=== PATIENT | male | born 1970 | race Caucasian/White ===

== ENCOUNTER → 2017-03-01 | Outpatient (CLI) | payer OTHER ==
[2017-03-01 09:12] LABS: ALBUMIN/GLOBULIN RATIO 1.1 (1.0-1.7); CALCIUM 9.3 mg/dL (8.5-10.1); CREATININE 1.2 mg/dL (0.7-1.3); GFR 65.8; POTASSIUM 4.7 mmol/L (3.5-5.1); TOTAL BILIRUBIN 0.7 mg/dL (0.2-1.0); TOTAL PROTEIN 7.7 g/dL (6.4-8.2)
== END | disposition home or self-care (01) ==
LOC: LAB 07:11
PROVIDERS: ATTEND Internal Medicine Cardiovascular Disease
DX: E78.00 Pure hypercholesterolemia, unspecified (principal)
CPT/HCPCS: 36415; 80053; 80061

== ENCOUNTER 2018-02-27 14:31 | Emergency (ER) | payer OTHER ==
[2018-02-27] MEDS ORDERED: HYDR-2758 PO (14:53)
[2018-02-27 15:41] LABS: BILIRUBIN,URINE NEG (NEG); CLARITY,URINE CLEAR; COLOR,URINE YELLOW
[2018-02-27 15:42] LABS: GLUCOSE,URINE NEG (NEG); NITRITE,URINE NEG (NEG); UROBILINOGEN,URINE 0.2 mg/dL (0.2 mg/dL)
--- NOTE | 2018-02-27 16:34 | PHYS DOC ---
Past History Past Medical History: Hypertension, Kidney Stones Past Surgical History: Cholecystectomy Alcohol Use: Occasionally Drug Use: None Adult General Chief Complaint Chief Complaint: FLANK PAIN HPI HPI 47-year-old male patient with history of hypertension and previous kidney stones complaining of sudden onset of lower back pain that woke him up at 2 AM as a sharp pain without radiation. Patient complains of nausea and urinary frequency and states the pain getting gradually getting worse and rated his pain about 9/10 at 1200. Patient states he took leftover hydrocodone with improvement of pain to 2-3. Patient denies vomiting diarrhea, constipation, fever and chills, chest pain and shortness of breath, focal neuro deficit. Patient states he had the same pain with his previous kidney stones and thinks he has another kidney stone. Review of Systems Review of Systems Constitutional: Denies fever or chills [] Eyes: Denies change in visual acuity, redness, or eye pain [] HENT: Denies nasal congestion or sore throat [] Respiratory: Denies cough or shortness of breath [] Cardiovascular: No additional information not addressed in HPI [] GI: Denies abdominal pain, nausea, vomiting, bloody stools or diarrhea [] : Denies dysuria or hematuria , reports flank pain and frequent Musculoskeletal: Denies back pain or joint pain [] Integument: Denies rash or skin lesions [] Neurologic: Denies headache, focal weakness or sensory changes [] Endocrine: Denies polyuria or polydipsia [] All other systems were reviewed and found to be within normal limits, except as documented in this note. Current Medications Current Medications Current Medications Medications (Trade) Dose Ordered Sig/[facility] Start Time Stop Time Status Last Admin Dose Admin Clonidine HCl (Catapres) 0.1 mg 1X ONCE 02/27/18 16:45 02/27/18 16:46 Allergies Allergies Allergies Coded Allergies Type Severity Reaction Last Updated Verified No Known Drug Allergies 02/27/18 No Physical Exam Physical Exam Constitutional: Well developed, well nourished, no acute distress, non-toxic appearance. [] HENT: Normocephalic, atraumatic, oropharynx moist. Eyes: PERRLA, EOMI, conjunctiva normal, no discharge. [] Neck: Normal range of motion, no tenderness, supple, no stridor. [] Cardiovascular:Heart rate regular rhythm, no murmur [] Lungs & Thorax: Bilateral breath sounds clear to auscultation [] Abdomen: Bowel sounds normal, soft, no tenderness, no masses, no pulsatile masses. [] Skin: Warm, dry, no erythema, no rash. [] Back: No tenderness, no CVA tenderness. [] Extremities: No tenderness, no cyanosis, no clubbing, ROM intact, no edema. [] Neurologic: Alert and oriented X 3, normal motor function, normal sensory function, no focal deficits noted. [] Psychologic: Affect normal, judgement normal, mood normal. [] Current Patient Data Vital Signs Vital Signs Date Time Temp Pulse Resp B/P (MAP) Pulse Ox O2 Delivery O2 Flow Rate FiO2 02/27/18 16:20 76 20 188/118 (141) 96 Room Air 02/27/18 14:32 97.8 Lab Results Laboratory Tests Test 02/27/18 15:15 Urine Collection Type Unknown Urine Color Yellow Urine Clarity Clear Urine pH 6.0 Urine Specific [place] 1.020 Urine Protein Trace (NEG-TRACE) Urine Glucose (UA) Neg mg/dL (NEG) Urine Ketones (Stick) Neg mg/dL (NEG) Urine Blood Large (NEG) Urine Nitrite Neg (NEG) Urine Bilirubin Neg (NEG) Urine Urobilinogen Dipstick 0.2 mg/dL (0.2 mg/dL) Urine Leukocyte Esterase Neg (NEG) EKG EKG [] Radiology/Procedures Radiology/Procedures [] IMAGING REPORT Signed PATIENT: THIAGO LUIS ACCOUNT: [id number] : 1970 LOCATION: ER AGE: 47 SEX: M EXAM STATUS: REG ER ORD. PHYSICIAN: KAYLAN FONTANEZ MD REASON: lower back pain since this morning, history of kidney stones PROCEDURE: CT ABDOMEN PELVIS WO CONTRAST PQRS Compliance Statement: One or more of the following individualized dose reduction techniques were utilized for this examination: 1. Automated exposure control 2. Adjustment of the mA and/or kV according to patient size 3. Use of iterative reconstruction technique CT ABDOMEN PELVIS WO CONTRAST Clinical Indication: FLANK PAIN, lower back pain since this morning. History of kidney stones. Comparison: None. Technique: Helical CT imaging of the abdomen and pelvis is performed without IV or oral contrast. Findings: Lung bases essentially clear. Cardiac size normal. Fatty infiltration of the liver. Cholecystectomy. The spleen, pancreas, adrenal glands, abdominal aorta caliber are normal. The right ureter is normal. No right hydronephrosis. Mild right perinephric stranding. There is moderate left perinephric stranding. There is a 4.7 cm left lower pole renal cyst. There is at least 2 punctate nonobstructing left renal calculi. There is mild left hydroureteronephrosis secondary to a 5 mm distal left ureteral calculus, image 125. The calculus is a couple of centimeters proximal to the ureterovesicular junction. There is mild left periureteral stranding. Stomach unremarkable. No dilated small bowel. There is no colon wall thickening. The appendix is normal. No abdominal adenopathy or free fluid. Urinary bladder is not well distended. Wall is borderline thickened. Prostate and seminal vesicles are normal. No pelvic free fluid. Bilateral L5 spondylolysis. There is negligible grade 1 anterolisthesis of L5 on S1 and negligible grade 1 retrolisthesis of L4 on L5. IMPRESSION: 1. Mild left obstructive uropathy secondary to a 5 mm distal left ureteral calculus. 2. Punctate nonobstructing left renal calculi. 3. Fatty infiltration of the liver. 4. Borderline wall thickening of the urinary bladder. Considerations include nonspecific cystitis, chronic bladder outlet obstruction, or pseudothickening due to lack of distention. Electronically signed by: Blue Rdz MD (02/27/2018 5:01 PM) [id number] DICTATED AND SIGNED BY: BLUE RDZ MD DATE: 02/27/18 1654 Course & Med Decision Making Course & Med Decision Making Pertinent Labs and Imaging studies reviewed. (See chart for details) Evaluation of patient in ER showed 47-year-old male patient with complaining of low back pain and urinary frequency. Patient had 5 mm left UVJ junction stone. Patient had blood pressure of more than 200/126 that did not get better with clonidine. Blood pressure did not get better with clonidine but patient take more clonidine. Fentanyl IV was given and labs was ordered. Patient instructed to strain his urine and follow up with urologist. labs pending. Patient care transferred to Dr. Beth at [phone] ED course: Patient was signed out to me by Dr. Fontanez who is concerned for the patient's elevated blood pressure of 180/120. I went to reevaluate the patient who states he is completely asymptomatic other than some pain from his kidney stone but denies any headache or vision or any chest pain or shortness of breath. Patient does not want any more blood pressure medication because he states that in the past they have overtreated his blood pressure and dropped it to low and he had symptoms from low blood pressure. I recommended the patient follow up as PCP for further blood pressure management and to take his blood pressure in the morning. I recommended he continue taking his blood pressure medication as previously prescribed. I discussed with the patient prescriptions to go home with for the kidney stone and he states he has 25 Lortab at home and does not need any more pain medication. I recommended prescribing him Zofran and Flomax to help with the symptoms from the kidney stone. I recommended if pain is still present after 3 days to return immediately to the emergency room for further evaluation otherwise follow-up with his family doctor next one to 2 days. Patient states he 's passed stones larger than this before. Patient is stable for discharge. MDM: After reviewing the chart, CC/HPI/PMH, physical exam, [lab results], [ radiological results], I believe the patient has a kidney stone and is stable for discharge. Patient has known hypertension and is asymptomatic from his elevated blood pressure therefore do not believe he is having a hypertensive emergency needing further evaluation and/or admission at this time. I recommended patient follow up as PCP to further address his elevated blood pressure in his kidney stone. Patient is stable for discharge. Additional verbal discharge instructions were provided to the patient and that if symptoms get worse or any new symptoms arise that are worrisome to the patient he is to return to the emergency room immediately Dragon Disclaimer Dragon Disclaimer This electronic medical record was generated, in whole or in part, using a voice recognition dictation system. Departure Departure: Impression: Primary Impression: Renal colic Additional Impressions: Ureterolithiasis Hypertensive urgency Disposition: 01 HOME, SELF-CARE Condition: STABLE Referrals: PCP,NO (PCP) Patient Instructions: Kidney Stones Additional Instructions: Please follow-up with your family doctor in the next one to 2 days to further address your elevated blood pressure and kidney stone. If symptoms increase please return immediately to the emergency room Scripts Tamsulosin Hcl (FLOMAX) 0.4 Mg Cap.er.24h 1 CAP PO DAILY for 5 Days, #5 CAP 11 Refills Prov: JAZMINE BETH DO 02/27/18 Ondansetron (ZOFRAN ODT) 4 Mg Tab.rapdis 1 TAB SL Q8HRS, #10 TAB Prov: JAZMINE BETH DO 02/27/18 Problem Qualifiers KAYLAN FONTANEZ MD Feb 27, 2018 16:34 JAZMINE BETH DO Feb 27, 2018 18:54
[2018-02-27] MEDS ORDERED: cloNIDine HCL 0.1 MG TABLET PO ONE ×2 (16:45→17:45)
--- NOTE | 2018-02-27 17:05 | RAD ---
PQRS Compliance Statement: One or more of the following individualized dose reduction techniques were utilized for this examination: 1. Automated exposure control 2. Adjustment of the mA and/or kV according to patient size 3. Use of iterative reconstruction technique CT ABDOMEN PELVIS WO CONTRAST Clinical Indication: FLANK PAIN, lower back pain since this morning. History of kidney stones. Comparison: None. Technique: Helical CT imaging of the abdomen and pelvis is performed without IV or oral contrast. Findings: Lung bases essentially clear. Cardiac size normal. Fatty infiltration of the liver. Cholecystectomy. The spleen, pancreas, adrenal glands, abdominal aorta caliber are normal. The right ureter is normal. No right hydronephrosis. Mild right perinephric stranding. There is moderate left perinephric stranding. There is a 4.7 cm left lower pole renal cyst. There is at least 2 punctate nonobstructing left renal calculi. There is mild left hydroureteronephrosis secondary to a 5 mm distal left ureteral calculus, image 125. The calculus is a couple of centimeters proximal to the ureterovesicular junction. There is mild left periureteral stranding. Stomach unremarkable. No dilated small bowel. There is no colon wall thickening. The appendix is normal. No abdominal adenopathy or free fluid. Urinary bladder is not well distended. Wall is borderline thickened. Prostate and seminal vesicles are normal. No pelvic free fluid. Bilateral L5 spondylolysis. There is negligible grade 1 anterolisthesis of L5 on S1 and negligible grade 1 retrolisthesis of L4 on L5. IMPRESSION: 1. Mild left obstructive uropathy secondary to a 5 mm distal left ureteral calculus. 2. Punctate nonobstructing left renal calculi. 3. Fatty infiltration of the liver. 4. Borderline wall thickening of the urinary bladder. Considerations include nonspecific cystitis, chronic bladder outlet obstruction, or pseudothickening due to lack of distention. Electronically signed by: Blue Rdz MD (02/27/2018 5:01 PM) [id number]
[2018-02-27] MEDS ORDERED: TAMSULOSIN 0.4 MG CAP.ER.24H. PO ONE ×2 (17:25→17:45)
[2018-02-27 17:52] LABS: BASO % 0 % (0-3); EOS # 0.1 x10^3/uL (0.0-0.7); EOS % 0 % (0-3); HEMATOCRIT 47.8 % (39.0-53.0); HEMOGLOBIN 16.2 g/dL (13.0-17.5); LYMPH # 1.6 x10^3/uL (1.0-4.8); LYMPH % 11 % (24-48); MEAN CORPUSCULAR HEMOGLOBIN 30 pg (25-35); MEAN CORPUSCULAR HGB CONC 34 g/dL (31-37); MEAN CORPUSCULAR VOLUME 88 fL (79-100); MONO # 1.3 x10^3/uL (0.0-1.1); MONO % 10 % (0-9); NEUT # 11.1 x10^3uL (1.8-7.7); NEUT % 79 % (31-73); PLATELET COUNT 261 x10^3/uL (140-400); RED BLOOD COUNT 5.47 x10^6/uL (4.30-5.70); RED CELL DISTRIBUTION WIDTH 14.1 % (11.5-14.5); WHITE BLOOD COUNT 14.1 x10^3/uL (4.0-11.0)
[2018-02-27 18:04] LABS: ALBUMIN/GLOBULIN RATIO 1.1 (1.0-1.7); CREATININE 1.2 mg/dL (0.7-1.3); GFR 65.5; POTASSIUM 3.9 mmol/L (3.5-5.1); TOTAL BILIRUBIN 0.6 mg/dL (0.2-1.0); TOTAL PROTEIN 7.8 g/dL (6.4-8.2)
[2018-02-27 18:34] VITALS: BP 180/120
[2018-02-27] MEDS ORDERED: ONDA4TAB10 SL (18:54)
[2018-02-27] MEDS ORDERED: TAMS0.4C97 PO (18:54)
== END 2018-02-27 19:06 | disposition home or self-care (01) ==
LOC: ER 14:31
DX: N20.2 Calculus of kidney with calculus of ureter (principal); I16.0 Hypertensive urgency; I10 Essential (primary) hypertension; Z87.442 Personal history of urinary calculi
CPT/HCPCS: 36415; 74176; 80053; 81003; 85025; 96374; 99285; J3010

== ENCOUNTER 2018-03-03 17:21 | Emergency (ER) | payer OTHER ==
[~2018-03-03] VITALS: Ht 165.1 cm; Wt 104.3 kg
[~2018-03-03 17:21] MED LIST: HYDR-2758 PO; ONDA4TAB10 SL; TAMS0.4C97 PO
[2018-03-03 17:30] VITALS: BP 153/99
--- NOTE | 2018-03-03 17:38 | ED.ADGEN ---
Past History Past Medical History: Hypertension, Kidney Stones Past Surgical History: Cholecystectomy Alcohol Use: Occasionally Drug Use: None Adult General Chief Complaint Chief Complaint ".. I was here the other day... and got a CT.. I ve got another kidney stone.. but now I am having fever and chills...".. " I am very constipated too from the narcotics..." HPI HPI Patient is a 47 year old male who presents with above hx and complaints of fever , chills and increasing Lt flank pain,. Pt. has prior CT of renal stone. Patient denies any history immunosuppression. Patient has had previous renal stones x5. Patient does complain of constipation. Review of Systems Review of Systems Constitutional: Hx. fever or chills [] Eyes: Denies change in visual acuity, redness, or eye pain [] HENT: Denies nasal congestion or sore throat [] Respiratory: Denies cough or shortness of breath [] Cardiovascular: No additional information not addressed in HPI [] GI: Complaints of abdominal pain, nausea, and constipation. Complains of severe left flank pain : Denies dysuria or hematuria [] Musculoskeletal: Denies back pain or joint pain [] Integument: Denies rash or skin lesions [] Neurologic: Denies headache, focal weakness or sensory changes [] Endocrine: Denies polyuria or polydipsia [] All other systems were reviewed and found to be within normal limits, except as documented in this note. Family History Family History Noncontributory Current Medications Current Medications Current Medications Medications (Trade) Dose Ordered Sig/[facility] Start Time Stop Time Status Last Admin Dose Admin Ceftriaxone Sodium 1 gm/ Sodium Chloride 50 ml @ 100 mls/hr 1X ONCE 03/03/18 19:45 03/03/18 20:14 UNV Ceftriaxone Sodium (Rocephin) 1 gm 1X ONCE 03/03/18 19:45 03/03/18 19:46 DC 03/03/18 20:56 1 GM Ketorolac Tromethamine (Toradol) 30 mg 1X ONCE 03/03/18 18:30 03/03/18 18:31 DC 03/03/18 18:46 30 MG Lactated Ringer's 1,000 ml @ 100 mls/hr 1X ONCE 03/03/18 19:45 03/04/18 05:44 DC 03/03/18 20:55 100 MLS/HR Magnesium Citrate (Citroma) 296 ml 1X ONCE 03/03/18 18:30 03/03/18 18:31 DC 03/03/18 18:46 296 ML Ondansetron HCl (Zofran) 8 mg 1X ONCE 03/03/18 18:30 03/03/18 18:31 DC 03/03/18 18:47 4 MG Tamsulosin HCl (Flomax) 0.4 mg 1X ONCE 03/03/18 19:45 03/03/18 19:46 DC 03/03/18 20:56 0.4 MG Allergies Allergies Allergies Coded Allergies Type Severity Reaction Last Updated Verified No Known Drug Allergies 02/27/18 No Physical Exam Physical Exam Constitutional: in acute distress, non-toxic appearance. [] HENT: Normocephalic, atraumatic, bilateral external ears normal, oropharynx moist, no oral exudates, nose normal. [] Eyes: PERRLA, EOMI, conjunctiva normal, no discharge. [] Neck: Normal range of motion, no tenderness, supple, no stridor. [] Cardiovascular:Heart rate regular rhythm, no murmur [] Lungs & Thorax: Bilateral breath sounds clear to auscultation [] Abdomen: Bowel sounds decreased, soft, generalized tenderness, no masses, no pulsatile masses. [] Lt. flank pain. Distended. Obese. Skin: Warm, dry, no erythema, no rash. [] Back: No tenderness, lt. CVA tenderness. [] Extremities: No tenderness, no cyanosis, no clubbing, ROM intact, no edema. [] Neurologic: Alert and oriented X 3, normal motor function, normal sensory function, no focal deficits noted. [] Psychologic: Affect anxious, judgement normal, mood normal. [] Current Patient Data Vital Signs Vital Signs Date Time Temp Pulse Resp B/P (MAP) Pulse Ox O2 Delivery O2 Flow Rate FiO2 03/03/18 17:30 102.7 110 22 94 Room Air Lab Results Laboratory Tests Test 03/03/18 18:30 03/03/18 20:30 03/03/18 20:40 White Blood Count 16.2 x10^3/uL (4.0-11.0) H Red Blood Count 4.89 x10^6/uL (4.30-5.70) Hemoglobin 14.7 g/dL (13.0-17.5) Hematocrit 43.0 % (39.0-53.0) Mean Corpuscular Volume 88 fL (79-100) Mean Corpuscular Hemoglobin 30 pg (25-35) Mean Corpuscular Hemoglobin Concent 34 g/dL (31-37) Red Cell Distribution Width 13.8 % (11.5-14.5) Platelet Count 286 x10^3/uL (140-400) Neutrophils (%) (Auto) 81 % (31-73) H Lymphocytes (%) (Auto) 6 % (24-48) L Monocytes (%) (Auto) 12 % (0-9) H Eosinophils (%) (Auto) 0 % (0-3) Basophils (%) (Auto) 0 % (0-3) Neutrophils # (Auto) 13.1 x10^3uL (1.8-7.7) H Lymphocytes # (Auto) 1.0 x10^3/uL (1.0-4.8) Monocytes # (Auto) 2.0 x10^3/uL (0.0-1.1) H Eosinophils # (Auto) 0.0 x10^3/uL (0.0-0.7) Basophils # (Auto) 0.0 x10^3/uL (0.0-0.2) Segmented Neutrophils % 86 % (35-66) H Lymphocytes % 4 % (24-48) L Atypical Lymphocytes % (Manual) 1 % (0-0) H Monocytes % 9 % (0-10) Platelet Estimate Adequate (ADEQUATE) Polychromasia Present Prothrombin Time 12.1 SEC (9.4-11.4) H Prothrombin Time INR 1.2 (0.9-1.1) H PTT 29 SEC (23-33) Sodium Level 133 mmol/L (136-145) L Potassium Level 4.2 mmol/L (3.5-5.1) Chloride Level 98 mmol/L (98-107) Carbon Dioxide Level 28 mmol/L (21-32) Anion Gap 7 (6-14) Blood Urea Nitrogen 21 mg/dL (8-26) Creatinine 1.8 mg/dL (0.7-1.3) H Estimated GFR (Cockcroft-Gault) 41.0 Glucose Level 141 mg/dL (70-99) H Calcium Level 9.2 mg/dL (8.5-10.1) Total Bilirubin 0.8 mg/dL (0.2-1.0) Direct Bilirubin 0.3 mg/dL (0.0-0.2) H Aspartate Amino Transferase (AST) 34 U/L (15-37) Alanine Aminotransferase (ALT) 78 U/L (16-63) H Alkaline Phosphatase 91 U/L (46-116) Total Protein 8.2 g/dL (6.4-8.2) Albumin 3.5 g/dL (3.4-5.0) Lactic Acid Level 1.3 mmol/L (0.4-2.0) Urine Collection Type Unknown Urine Color Yellow Urine Clarity Clear Urine pH 5.5 Urine Specific [place] 1.015 Urine Protein 30 mg/dl (NEG-TRACE) Urine Glucose (UA) Neg mg/dL (NEG) Urine Ketones (Stick) Neg mg/dL (NEG) Urine Blood Trace (NEG) Urine Nitrite Neg (NEG) Urine Bilirubin Neg (NEG) Urine Urobilinogen Dipstick 0.2 mg/dL (0.2 mg/dL) Urine Leukocyte Esterase Neg (NEG) Urine RBC 3-5 /HPF (0-2) Urine WBC 1-4 /HPF (0-4) Urine Squamous Epithelial Cells Few /LPF Urine Bacteria 0 /HPF (0-FEW) Urine Mucus Slight /LPF EKG EKG [] Radiology/Procedures Radiology/Procedures CT shows minimal progress of a 4 mm stone at UVC on left. has hydronephrosis and renal cyst[] See formal report. Course & Med Decision Making Course & Med Decision Making Pertinent Labs and Imaging studies reviewed. (See chart for details). Discussed presentation testing and treatment plan with Dr. Cummings- will transfer to [facility]- for urology consult [] Final Impression Final Impression 1. Hx. of Lt Renal Stone- 5 2. UTI 3. Fever and chills 4. Diabetes 5. Leukocytosis 6. Hyponatremia 7. HTN 8. Constipation Problems: Dragon Disclaimer Dragon Disclaimer This electronic medical record was generated, in whole or in part, using a voice recognition dictation system. MARS ENRIQUE MD Mar 03, 2018 17:38
[2018-03-03] MEDS ORDERED: IV RINGERS SOLUTION,LACTATED 1,000 ML IV SCH (18:04)
[2018-03-03] MEDS ORDERED: KETOROLAC 30 MG/ML VIAL. IV ONE (18:30)
[2018-03-03] MEDS ORDERED: ONDANSETRON PF 4 MG/2 ML VIAL. IV ONE (18:30)
[2018-03-03] MEDS ORDERED: MAGNESIUM CITRATE 296 ML SOLUTION. PO ONE (18:30)
[2018-03-03 18:53] LABS: BASO % 0 % (0-3); EOS % 0 % (0-3); HEMOGLOBIN 14.7 g/dL (13.0-17.5); LYMPH % 6 % (24-48); MEAN CORPUSCULAR HEMOGLOBIN 30 pg (25-35); MEAN CORPUSCULAR HGB CONC 34 g/dL (31-37); MEAN CORPUSCULAR VOLUME 88 fL (79-100); MONO % 12 % (0-9); NEUT # 13.1 x10^3uL (1.8-7.7); NEUT % 81 % (31-73); PLATELET COUNT 286 x10^3/uL (140-400); RED BLOOD COUNT 4.89 x10^6/uL (4.30-5.70); RED CELL DISTRIBUTION WIDTH 13.8 % (11.5-14.5); WHITE BLOOD COUNT 16.2 x10^3/uL (4.0-11.0)
[2018-03-03 19:07] LABS: ALBUMIN 3.5 g/dL (3.4-5.0); CALCIUM 9.2 mg/dL (8.5-10.1); CREATININE 1.8 mg/dL (0.7-1.3); DIRECT BILIRUBIN 0.3 mg/dL (0.0-0.2); POTASSIUM 4.2 mmol/L (3.5-5.1); TOTAL BILIRUBIN 0.8 mg/dL (0.2-1.0); TOTAL PROTEIN 8.2 g/dL (6.4-8.2)
[2018-03-03] MEDS ORDERED: IV RINGERS SOLUTION,LACTATED 1,000 ML IV ONE (19:45)
[2018-03-03] MEDS ORDERED: cefTRIAXone IV Push 1 GM VIAL. IVP ONE (19:45)
[2018-03-03] MEDS ORDERED: TAMSULOSIN 0.4 MG CAP.ER.24H. PO ONE (19:45)
[2018-03-03 21:50] LABS: BACTERIA,URINE 0 /HPF (0-FEW); BILIRUBIN,URINE NEG (NEG); CLARITY,URINE CLEAR; COLOR,URINE YELLOW; GLUCOSE,URINE NEG (NEG); NITRITE,URINE NEG (NEG); SQUAMOUS EPITHELIAL CELL,UR FEW /LPF; UROBILINOGEN,URINE 0.2 mg/dL (0.2 mg/dL)
--- NOTE | 2018-03-03 22:26 | RAD ---
EXAM: Abdomen and pelvis CT without intravenous contrast. HISTORY: Pain. TECHNIQUE: Computed tomographic images of the abdomen and pelvis were obtained without contrast. Multiplanar reformatting was performed. *One or more of the following individualized dose reduction techniques were utilized for this examination: 1. Automated exposure control. 2. Adjustment of the mA and/or kV according to patient size. 3. Use of iterative reconstruction technique. COMPARISON: 02/27/2018. FINDINGS: Evaluation of the lower thorax demonstrates bilateral basilar atelectasis. There is a trace left pleural effusion. The heart is upper normal in size. There is hepatic steatosis. No focal hepatic lesion is seen. The gallbladder is surgically absent. The pancreas, spleen and adrenal glands are unremarkable. There has been slight interval increase in mild to moderate left hydronephrosis and hydroureter. This extends to an obstructing 4 mm stone at the left ureterovesical junction. There has been slight distal transit of this stone compared to the recent prior study. There is associated increased perinephric and periureteral stranding and trace fluid. There is a 1 mm nonobstructing stone within the lower mid zone of the left kidney. There is a 4.7 cm hypodense lesion along the lower pole of the left kidney. This demonstrates slight interval increase in surrounding hyperdensity possibly due to a peripherally hemorrhagic cystic lesion. No clear solid lesion component is seen on this noncontrast exam. There is no appendicitis. There is no bowel obstruction. The urinary bladder wall is prominent. No pathologically enlarged lymph node is seen. There is no suspicious osseous lesion. IMPRESSION: 1. Slight interval increase in mild to moderate left obstructive uropathy secondary to a 4 mm stone at the left UVJ. There has been distal transit of the stone compared to the recent prior study. 2. Tiny nonobstructing left renal stone. 3. 4.7 cm fluid density lesion with slight peripheral increased density within the lower pole the left kidney, possibly a peripherally hemorrhagic or complex cyst. Renal sonography can be obtained to confirm benignity if not previously performed. Electronically signed by: Neha Licona MD (03/03/2018 10:22 PM) [facility]
[2018-03-03 22:54] LABS: % LYMPHS 4 % (24-48); % MONOS 9 % (0-10); % SEGS 86 % (35-66)
[2018-03-03 23:10] LABS: PLT ESTIMATE ADEQUATE (ADEQUATE); POLYCHROMASIA PRESENT
[2018-03-03 23:13] LABS: % ATYL 1 % (0-0)
--- NOTE | 2018-03-04 10:24 | RAD ---
ACUTE ABDOMEN SERIES Clinical Indication: pain- Hx kidney stone, and constipation, Comparison: CT abdomen and pelvis dated 02/27/2018 Findings: Low lung volume. Left lower lung zone linear opacities likely related to atelectasis or scarring. Pulmonary vascular distinctness. No pleural effusion or pneumothorax. Borderline cardiomegaly and apparent widening of the superior mediastinum which is likely accentuated due to the low lung volume and portable technique. No obvious free air. Nonobstructive bowel gas pattern. Mild colonic stool. Cholecystectomy clips. Small density in the region of the left ureterovesicular junction may relate to recently seen ureteral stone. No acute osseous abnormality. IMPRESSION: 1. Small density in the region of the left ureterovesicular junction may relate to recently seen ureteral stone. 2. Borderline cardiomegaly and apparent widening of the superior mediastinum which is likely accentuated due to the low lung volume and portable technique.
== END 2018-03-03 23:48 | disposition short-term general hospital (02) ==
LOC: ER 17:21
DX: N39.0 Urinary tract infection, site not specified (principal); E11.9 Type 2 diabetes mellitus without complications; D72.829 Elevated white blood cell count, unspecified; E87.1 Hypo-osmolality and hyponatremia; I10 Essential (primary) hypertension; K59.00 Constipation, unspecified; Z87.442 Personal history of urinary calculi; Z90.49 Acquired absence of other specified parts of digestive tract
CPT/HCPCS: 36415; 74022; 74176; 80048; 80076; 81001; 83605; 85007; 85025; 85610; 85730; 87040; 96361; 96365; 96375; 99285; J0696; J1885; J2405; J7120

== ENCOUNTER 2018-09-10 18:15 | Emergency (ER) | payer OTHER ==
[~2018-09-10] VITALS: Ht 165.1 cm; Wt 107.0 kg
[2018-09-10 18:27] VITALS: BP 162/107
--- NOTE | 2018-09-10 19:54 | RAD ---
Single view chest and right-sided rib study dated 09/10/2018. No comparison available. Clinical data indication: Chest pain. FINDINGS: Single upright view of chest shows normal heart and mediastinal contours. Lungs are somewhat hypoinflated but otherwise clear. No consolidation or pleural effusion. No pneumothorax. Dedicated views of the right-sided ribs show no evidence of displaced right rib fracture. No acute bony abnormality. IMPRESSION: No acute radiographic abnormality. No evidence of displaced right rib fracture. Electronically signed by: Wayne Thurston MD (09/10/2018 7:51 PM) [facility]
--- NOTE | 2018-09-10 20:31 | ED.ADGEN ---
Past History Past Medical History: Hypertension, Kidney Stones Past Surgical History: Cholecystectomy Alcohol Use: Occasionally Drug Use: None Adult General Chief Complaint Chief Complaint Chest wall popping sensation HPI HPI Patient is a 48-year-old male who presents with right chest wall popping sensation after slamming into a doorknob with his right anterior chest. Denies chest wall pain, shortness of breath, abdominal pain but does feel popping sensation over lower rib region when taking deep breath and with movement. Injury occurred earlier today. No other acute symptoms or complaints.[] Review of Systems Review of Systems View symptoms as per history of present illness All other systems were reviewed and found to be within normal limits, except as documented in this note. Allergies Allergies Allergies Coded Allergies Type Severity Reaction Last Updated Verified No Known Drug Allergies 02/27/18 No Physical Exam Physical Exam Constitutional: Well developed, well nourished, no acute distress, non-toxic appearance. [] HENT: Normocephalic, atraumatic, bilateral external ears normal, oropharynx moist, no oral exudates, nose normal. [] Eyes: PERRLA, EOMI, conjunctiva normal, no discharge. [] Neck: Normal range of motion, no tenderness, supple, no stridor. [] Cardiovascular:Heart rate regular rhythm, no murmur [] Lungs & Thorax: Bilateral breath sounds clear to auscultation [] Abdomen: Bowel sounds normal, soft, no tenderness, no masses, no pulsatile masses. [] Skin: Warm, dry, no erythema, no rash. [] Back: No tenderness [] Neurologic: Alert and oriented X 3, normal motor function, normal sensory function, no focal deficits noted. [] Psychologic: Affect normal, judgement normal, mood normal. [] Current Patient Data Vital Signs Vital Signs Date Time Temp Pulse Resp B/P (MAP) Pulse Ox O2 Delivery O2 Flow Rate FiO2 09/10/18 18:27 98.2 94 18 96 Room Air EKG EKG [] Radiology/Procedures Radiology/Procedures [Right rib series/PA chest: No obvious displaced rib fracture per radiology report.] Course & Med Decision Making Course & Med Decision Making Pertinent Labs and Imaging studies reviewed. (See chart for details) [Patient asymptomatic in the emergency department. Recommend supportive care.] Final Impression Final Impression [#1 chest wall injury] Humberto Disclaimer Dragon Disclaimer This electronic medical record was generated, in whole or in part, using a voice recognition dictation system. RAFITA SOMMERS DO Sep 10, 2018 20:31
== END 2018-09-10 19:10 | disposition home or self-care (01) ==
LOC: ER 18:15
DX: S29.9XXA Unspecified injury of thorax, initial encounter (principal); I10 Essential (primary) hypertension; Z87.442 Personal history of urinary calculi; W22.8XXA Striking against or struck by other objects, initial encounter; Y93.89 Activity, other specified; Y92.89 Other specified places as the place of occurrence of the external cause; Y99.8 Other external cause status
CPT/HCPCS: 71101; 99284